=== PATIENT | female | born 1975 | race Caucasian/White ===

== ENCOUNTER 2017-06-28 08:19 | Day surgery (SDC) | payer BC ==
[2017-06-19 13:50] VITALS: BMI 29.2
[2017-06-28 09:47] VITALS: TEMP 98
[2017-06-28] MEDS ORDERED: Propofol 10 mg/ml Inj (20 ML) ONE (11:19)
[2017-06-28] MEDS ORDERED: Lidocaine 2% MPF (5 ml) Inj ONE (11:19)
[2017-06-28] MEDS ORDERED: Lactated Ringer's 1,000 ML IV ONE (11:20)
[2017-06-28 12:12] VITALS: BP 115/68; PULSE 78; RESP 18; O2SAT 98
== END 2017-06-28 13:41 | disposition home or self-care (01) ==
LOC: H.ENDO 08:19
PROVIDERS: ATTEND Internal Medicine Gastroenterology
DX: R13.10 Dysphagia, unspecified (principal); K76.9 Liver disease, unspecified; R12 Heartburn; K29.70 Gastritis, unspecified, without bleeding
CPT/HCPCS: 43239; 88305; J2704; J7120